=== PATIENT | female | born 1990 | race African-American/Black ===

== ENCOUNTER → 2020-11-24 11:34 | Outpatient (CLI) | payer OTHER, SELFPAY ==
--- NOTE | 2020-11-24 | DI.MRI.S_ITS ---
PROCEDURE: MR LUMBAR SPINE WO CON INDICATIONS: Dorsalgia, unspecified TECHNIQUE: Noncontrast sagittal T1 spin echo and T2 fast echo, sagittal STIR, axial T1 and T2 fast spin echo through the lumbar spine. In cases with scoliosis, additional coronal T2 fast spin echo may be performed. COMPARISON: None. FINDINGS: Image quality: Excellent. Alignment and Curvature: There is normal bony alignment. Bone Marrow: No acute fracture. Scattered small Schmorl's nodes. Spinal Cord: Conus medullaris terminates at the L1 level. Visualized cord demonstrates normal signal and size. Paraspinous Soft Tissues: No paravertebral masses. Ill-defined subcutaneous edema seen at the level of L1-L3. T12-L1: Normal appearance. L1-L2: Normal appearance. L2-L3: Normal appearance. L3-L4: Dorsal epidural lipomatosis is present. There is mild canal narrowing. Lateral recesses grossly patent. No foraminal stenosis. L4-L5: Mild canal narrowing and dorsal epidural lipomatosis. Partial effacement of both lateral recesses with bilaterally symmetric appearance. No foraminal stenosis. L5-S1: Broad-based posterior disc bulge and mild canal narrowing. Partial effacement of both lateral recesses with bilaterally symmetric appearance. Mild bilateral foraminal narrowing. IMPRESSION: Mild lower lumbar canal narrowing as detailed above in part due to dorsal epidural lipomatosis. Mild bilateral L5-S1 foraminal stenosis. Dictated by: Edward Perry M.D. on 11/24/2020 at 12:19 Approved by: Edward Perry M.D. on 11/24/2020 at 12:24
== END ==
PROVIDERS: PCP Family Medicine; Referring Provider Family Medicine; Visit Provider Family Medicine
DX: M54.9 Dorsalgia, unspecified (principal); M48.061 Spinal stenosis, lumbar region without neurogenic claudication; M48.07 Spinal stenosis, lumbosacral region
CPT/HCPCS: 72148

== ENCOUNTER → 2021-02-08 09:12 | Outpatient (CLI) | payer OTHER, SELFPAY ==
--- NOTE | 2021-02-08 09:14 | DI.ECHO.S_ITS ---
[place] +---------+ [facility] +---------+ : : [address] : : : : [id number] : : : : Phone: [phone]+ Echocardiogram Report + + :Name: YOSSI GARZA Study Date: 02/08/2021 Height: 62 in : :[facility] ReadingLocation: Weight: 185 lb : : Gender: Female BSA: 1.8 m2 : :: 1990 Age: 30 yrs BP: 140/86 mmHg: :Reason For Study: Dyspnea : :Ordering Physician: Bhumika : :Angela Vance Performed By: Flip Tucker : :Referring: BHUMIKA VANCE : + + Interpretation Summary 1) Normal left ventricular size, thickness, wall motion, and systolic function (EF 55-60%). 2) Normal right ventricular size and function. 3) No significant valvular abnormalities. 4) The right ventricular systolic pressure is estimated to be at least 23 mmHg based on an estimated right atrial pressure of 3 mm Hg. 5) No prior Echo available for comparison. Procedure: A two-dimensional transthoracic echocardiogram with color flow and Doppler was performed. The study quality was technically adequate. There is no prior echocardiogram noted for this patient. Left Ventricle: The left ventricle is normal in size and wall thickness. Left ventricular systolic function is normal. The ejection fraction is estimated to be 55-60%. There are no focal wall motion abnormalities. Diastolic parameters suggest probable normal left ventricular diastolic function and normal filling pressures. Right Ventricle: The right ventricle is normal in size and function. Atria: Both atria are normal in size. There is no Doppler evidence for an interatrial shunt. Mitral Valve: The mitral valve is normal in structure and function. There is trace mitral regurgitation. Aortic Valve: The aortic valve is normal in structure and function. There is no aortic valve stenosis. No aortic regurgitation is present. Tricuspid Valve: The tricuspid valve is normal in structure and function. There is mild tricuspid regurgitation. The right ventricular systolic pressure is estimated to be at least 23 mmHg based on an estimated right atrial pressure of 3 mm Hg. Pulmonic Valve: The pulmonic valve is not well visualized. There is no pulmonic valvular regurgitation. Great Vessels: The aortic root is normal size. The dimensions of the ascending aorta are normal. The IVC is of normal diameter and collapses greater than 50% with a sniff. This suggests a low right atrial pressure of 3 mm Hg. Pericardium/ Pleura There is no pericardial effusion. There is no pleural effusion. MMode/2D Measurements & Calculations LVIDd: 4.7 cm LVOT diam: 1.9 cm LVIDs: 3.3 cm Ao root diam: 2.7 cm FS: 29.8 % asc Aorta Diam: 2.8 cm IVSd: 0.90 cm LVPWd: 0.80 cm LV coles. diameter/BSA (cm/m^2): 2.5 LV sys. diameter/BSA (cm/m^2): 1.8 LA dimension: 2.5 cm RA long axis: 4.5 cm LA A2 area: 13.4 cm2 LA A4 area: 9.4 cm2 LA length (vol): 4.5 cm LA vol: 23.6 ml LA vol index: 12.7 ml/m2 LVLs ap4: 5.8 cm LVLd ap2: 7.1 cm LVLs ap2: 6.2 cm TAPSE_phl: 1.6 cm RVIDd/LVIDd_phl: 0.64 Doppler Measurements & Calculations LVOT Max Sherman: 97.5 cm/sec MV E max sherman: 102.0 cm/sec LV V1 max P.8 mmHg MV A max sherman: 65.6 cm/sec LV V1 VTI: 17.9 cm MV E/A: 1.6 Med Peak E' Sherman: 7.2 cm/sec E/E' med: 14.1 Lat Peak E' Sherman: 14.3 cm/sec E/E' lat: 7.1 E/e' average: 10.6 TR max sherman: 221.0 cm/sec SV(LVOT): 50.8 ml TR max P.5 mmHg PA V2 max: 78.9 cm/sec PA V2 mean: 60.2 cm/sec PA mean P.0 mmHg PA pr(Accel): 47.9 mmHg MV P1/2t-pr_phl: 64.0 msec Reading Physician:06:36 PM
== END ==
PROVIDERS: PCP Family Medicine; Referring Provider Internal Medicine Cardiovascular Disease; Visit Provider Internal Medicine Cardiovascular Disease
DX: I07.1 Rheumatic tricuspid insufficiency (principal); R06.00 Dyspnea, unspecified; R07.9 Chest pain, unspecified; R60.0 Localized edema
CPT/HCPCS: 93306